=== PATIENT | male | born 2000 | race Caucasian/White ===

== ENCOUNTER 2021-08-04 16:15 | Inpatient (IN) | payer OTHER ==
[2021-08-04 17:40] VITALS: BMI 26.6
[2021-08-04] MEDS ORDERED: guaiFENesin 200 MG/10 ML 10 ML UNIT-DOSE CUPS PO PRN (21:39)
[2021-08-04] MEDS ORDERED: P-EPHED 60MG/TRIPROLIDI 2.5MG TABLET PO PRN (21:39)
[2021-08-04] MEDS ORDERED: DICYCLOMINE HCL 10 MG CAPSULE PO PRN (21:39)
[2021-08-04] MEDS ORDERED: LOPERAMIDE HCL 2 MG CAPSULE PO PRN (21:39)
[2021-08-04] MEDS ORDERED: chlordiazePOXIDE HCL 25 MG CAPSULE PO PRN (21:39)
[2021-08-04] MEDS ORDERED: MENTHOL/PHENOL 1 EACH UD MM PRN (21:39)
[2021-08-04] MEDS ORDERED: IBUPROFEN 400 MG TABLET (FP) PO PRN (21:39)
[2021-08-04] MEDS ORDERED: MAGNESIUM HYDROX 2400MG/30ML ORAL SUSPENSION 30 ML CUP PO PRN (21:39)
[2021-08-04] MEDS ORDERED: MAGNESIUM CITRATE 300 ML BOTTLE PO PRN (21:39)
[2021-08-04] MEDS ORDERED: ACETAMINOPHEN 325 MG TABLET (FP) PO PRN ×2 (21:39)
[2021-08-04] MEDS ORDERED: ONDANSETRON *ODT* 4 MG TABLET SL PRN (21:39)
[2021-08-04] MEDS ORDERED: METHOCARBAMOL 500 MG TABLET PO PRN (21:39)
[2021-08-04] MEDS ORDERED: BISMUTH SUBSALICYLATE 524 MG/30 ML PO PRN (21:39)
[2021-08-04] MEDS ORDERED: NICOTINE POLACRILEX 2 MG GUM BUC PRN (21:39)
[2021-08-04] MEDS ORDERED: MAG HYDROX/AL HYDROX/SIMETH 30 ML UNIT-DOSE CUP PO PRN (21:39)
[2021-08-04] MEDS: THIAMINE HCL 100 MG TABLET (FP) PO SCH (22:39)
[2021-08-04] MEDS: hydrOXYzine PAMOATE 25 MG CAPSULE (FP) PO PRN (22:39)
[2021-08-04] MEDS: MELATONIN 5 MG TABLETS PO SCH (22:39)
[2021-08-04] MEDS: chlordiazePOXIDE HCL 25 MG CAPSULE PO SCH (22:40)
[2021-08-05] MEDS: chlordiazePOXIDE HCL 25 MG CAPSULE PO SCH ×4 (06:13→23:01)
[2021-08-05] MEDS: PRENATAL VITAMINS W/ FOLIC ACID TABLET (FP) PO SCH (10:51)
[2021-08-05] MEDS: NICOTINE 14 MG/24 HOURS TOPICAL PATCH TD SCH (10:53)
[2021-08-05 14:12] LABS: HEMATOCRIT 40.7 % (35.4-49); HEMOGLOBIN 13.7 GM/dL (11.7-16.9); MCH 28.8 pg (25.7-33.7); MCHC 33.6 g/dl (32.0-35.9); MEAN CELL VOLUME 85.9 fl (80-96); MEAN PLT VOLUME 7.3 fl (7.5-11.1); PLATELET COUNT 310 10^3/uL (134-434); RBC 4.73 M/mm3 (4.00-5.60); RDW 13.4 % (11.9-15.9); WHITE BLOOD COUNT 5.8 K/mm3 (4.0-10.0)
[2021-08-05 14:15] LABS: CALCIUM 9.6 mg/dL (8.5-10.1)
[2021-08-05 14:16] LABS: ALBUMIN 3.6 g/dl (3.4-5.0); BLOOD UREA NITROGEN 12.6 mg/dL (7-18)
[2021-08-05 14:20] LABS: BILIRUBIN,TOTAL 0.2 mg/dL (0.2-1)
[2021-08-05 14:21] LABS: TOT PROT 6.4 g/dl (6.4-8.2)
[2021-08-05] MEDS: THIAMINE HCL 100 MG TABLET (FP) PO SCH (23:04)
[2021-08-05] MEDS: MELATONIN 5 MG TABLETS PO SCH (23:04)
[2021-08-06] MEDS: chlordiazePOXIDE HCL 25 MG CAPSULE PO SCH ×4 (06:08→23:08)
[2021-08-06] MEDS: PRENATAL VITAMINS W/ FOLIC ACID TABLET (FP) PO SCH (10:43)
[2021-08-06] MEDS: NICOTINE 14 MG/24 HOURS TOPICAL PATCH TD SCH (10:43)
[2021-08-06] MEDS: MELATONIN 5 MG TABLETS PO SCH (23:08)
[2021-08-06] MEDS: traZODone HCL 100 MG TABLET (FP) PO SCH (23:08)
[2021-08-06] MEDS: THIAMINE HCL 100 MG TABLET (FP) PO SCH (23:08)
[2021-08-07] MEDS ORDERED: chlordiazePOXIDE HCL 10 MG CAPSULE PO PRN
[2021-08-07] MEDS: chlordiazePOXIDE HCL 10 MG CAPSULE PO SCH ×4 (05:30→22:08)
[2021-08-07] MEDS: hydrOXYzine PAMOATE 25 MG CAPSULE (FP) PO PRN ×2 (05:31→22:09)
[2021-08-07] MEDS: NICOTINE 14 MG/24 HOURS TOPICAL PATCH TD SCH (10:09)
[2021-08-07] MEDS: PRENATAL VITAMINS W/ FOLIC ACID TABLET (FP) PO SCH (10:09)
[2021-08-07] MEDS: MELATONIN 5 MG TABLETS PO SCH (22:08)
[2021-08-07] MEDS: traZODone HCL 100 MG TABLET (FP) PO SCH (22:08)
[2021-08-07] MEDS: THIAMINE HCL 100 MG TABLET (FP) PO SCH (22:08)
[2021-08-08] MEDS: chlordiazePOXIDE HCL 10 MG CAPSULE PO SCH ×2 (06:14→18:10)
[2021-08-08] MEDS: NICOTINE 14 MG/24 HOURS TOPICAL PATCH TD SCH (10:32)
[2021-08-08] MEDS: PRENATAL VITAMINS W/ FOLIC ACID TABLET (FP) PO SCH (10:33)
[2021-08-08] MEDS: THIAMINE HCL 100 MG TABLET (FP) PO SCH (22:19)
[2021-08-08] MEDS: traZODone HCL 100 MG TABLET (FP) PO SCH (22:19)
[2021-08-08] MEDS: MELATONIN 5 MG TABLETS PO SCH (22:19)
[2021-08-09] MEDS ORDERED: chlordiazePOXIDE HCL 10 MG CAPSULE PO ONE (05:00)
[2021-08-09 09:04] VITALS: BP 134/75; PULSE 98; TEMP 97.9
== END 2021-08-09 09:26 | disposition home or self-care (01) | DRG 775 ==
LOC: YASAS 16:15 → Y3N 21:48
PROVIDERS: ADMIT Allergy & Immunology; ATTEND Allergy & Immunology
PROC: HZ2ZZZZ Detoxification Services for Substance Abuse Treatment (ICD-10-PCS; principal; 2021-08-04)
DX: F10.230 Alcohol dependence with withdrawal, uncomplicated (principal); F16.20 Hallucinogen dependence, uncomplicated; F12.20 Cannabis dependence, uncomplicated; F17.210 Nicotine dependence, cigarettes, uncomplicated; F19.24 Other psychoactive substance dependence with psychoactive substance-induced mood disorder; F42.4 Excoriation (skin-picking) disorder; F99 Mental disorder, not otherwise specified; G47.00 Insomnia, unspecified; R63.8 Other symptoms and signs concerning food and fluid intake; Z86.69 Personal history of other diseases of the nervous system and sense organs; Z59.00 Homelessness unspecified; Z56.0 Unemployment, unspecified
CPT/HCPCS: 36415; 80053; 85027; 86780; 87811; 93005; 93010; C9803; U0003; U0005

== ENCOUNTER 2021-08-10 13:14 | Inpatient (IN) | payer OTHER ==
[2021-08-10] MEDS ORDERED: guaiFENesin 200 MG/10 ML 10 ML UNIT-DOSE CUPS PO PRN (14:29)
[2021-08-10] MEDS ORDERED: ACETAMINOPHEN 325 MG TABLET (FP) PO PRN (14:29)
[2021-08-10] MEDS ORDERED: MAGNESIUM HYDROX 2400MG/30ML ORAL SUSPENSION 30 ML CUP PO PRN (14:29)
[2021-08-10] MEDS ORDERED: MAGNESIUM CITRATE 300 ML BOTTLE PO PRN (14:29)
[2021-08-10] MEDS ORDERED: LOPERAMIDE HCL 2 MG CAPSULE PO PRN (14:29)
[2021-08-10] MEDS ORDERED: P-EPHED 60MG/TRIPROLIDI 2.5MG TABLET PO PRN (14:29)
[2021-08-10] MEDS ORDERED: MAG HYDROX/AL HYDROX/SIMETH 30 ML UNIT-DOSE CUP PO PRN (14:29)
[2021-08-10] MEDS ORDERED: IBUPROFEN 400 MG TABLET (FP) PO PRN (14:29)
[2021-08-10 16:27] VITALS: BMI 24.3
[2021-08-10] MEDS: THIAMINE HCL 100 MG TABLET (FP) PO SCH (21:36)
[2021-08-10] MEDS: hydrOXYzine PAMOATE 25 MG CAPSULE (FP) PO SCH ×2 (21:37→22:06)
[2021-08-10] MEDS ORDERED: MELATONIN 5 MG TABLETS PO SCH (22:00)
[2021-08-10] MEDS: NICOTINE 7 MG/24 HOURS TOPICAL PATCH TD SCH (23:05)
[2021-08-11] MEDS: hydrOXYzine PAMOATE 25 MG CAPSULE (FP) PO SCH ×3 (08:42→13:33)
[2021-08-11] MEDS: NICOTINE 7 MG/24 HOURS TOPICAL PATCH TD SCH (09:45)
[2021-08-11] MEDS: PRENATAL VITAMINS W/ FOLIC ACID TABLET (FP) PO SCH (09:46)
[2021-08-11] MEDS ORDERED: FLU VACC QS2021-22(6MOS UP)/PF 60 MCG/0.5 ML SYRINGE IM ONE (13:00)
[2021-08-11 15:46] LABS: HIV INTERPRETATION NEGATIVE (NEGATIVE)
[2021-08-11 18:46] LABS: PH,URINE 5.5 (5.0-8.0); URINE APPEARANCE CLEAR; URINE BILIRUBIN NEGATIVE (NEGATIVE); URINE COLOR YELLOW; URINE GLUCOSE (UA) NEGATIVE (NEGATIVE); URINE KETONE NEGATIVE (NEGATIVE); URINE LEUK ESTERASE NEGATIVE (NEGATIVE); URINE NITRITE NEGATIVE (NEGATIVE); URINE PROTEIN NEGATIVE (NEGATIVE); URINE UROBILINOGEN 0.2 mg/dL (0.2-1.0)
[2021-08-11] MEDS: THIAMINE HCL 100 MG TABLET (FP) PO SCH (22:44)
[2021-08-11] MEDS: traZODone HCL 50 MG TABLET (FP) PO SCH (22:44)
[2021-08-12] MEDS: hydrOXYzine PAMOATE 25 MG CAPSULE (FP) PO PRN ×2 (06:31→21:17)
[2021-08-12] MEDS: NICOTINE 7 MG/24 HOURS TOPICAL PATCH TD SCH (09:58)
[2021-08-12] MEDS: PRENATAL VITAMINS W/ FOLIC ACID TABLET (FP) PO SCH (09:58)
[2021-08-12] MEDS: lamoTRIgine 25 MG TABLET PO SCH (09:58)
[2021-08-12 13:07] LABS: SARS-CoV-2 NAA Not Detected (Not Detected)
[2021-08-12] MEDS: traZODone HCL 50 MG TABLET (FP) PO SCH (21:16)
[2021-08-12] MEDS: THIAMINE HCL 100 MG TABLET (FP) PO SCH (21:18)
[2021-08-13] MEDS: NICOTINE 7 MG/24 HOURS TOPICAL PATCH TD SCH (10:20)
[2021-08-13] MEDS: PRENATAL VITAMINS W/ FOLIC ACID TABLET (FP) PO SCH (10:20)
[2021-08-13] MEDS: lamoTRIgine 25 MG TABLET PO SCH (10:20)
[2021-08-13] MEDS: THIAMINE HCL 100 MG TABLET (FP) PO SCH (21:48)
[2021-08-13] MEDS: traZODone HCL 50 MG TABLET (FP) PO SCH (21:48)
[2021-08-14] MEDS: lamoTRIgine 25 MG TABLET PO SCH (09:39)
[2021-08-14] MEDS: NICOTINE 7 MG/24 HOURS TOPICAL PATCH TD SCH (09:39)
[2021-08-14] MEDS: PRENATAL VITAMINS W/ FOLIC ACID TABLET (FP) PO SCH (09:39)
[2021-08-14] MEDS: NICOTINE 10 MG CARTRIDGE (INHALER) IH PRN (09:40)
[2021-08-14] MEDS: THIAMINE HCL 100 MG TABLET (FP) PO SCH (21:03)
[2021-08-14] MEDS: traZODone HCL 50 MG TABLET (FP) PO SCH (21:04)
[2021-08-15] MEDS: lamoTRIgine 25 MG TABLET PO SCH (09:56)
[2021-08-15] MEDS: PRENATAL VITAMINS W/ FOLIC ACID TABLET (FP) PO SCH (09:56)
[2021-08-15] MEDS: NICOTINE 7 MG/24 HOURS TOPICAL PATCH TD SCH (09:56)
[2021-08-15] MEDS: THIAMINE HCL 100 MG TABLET (FP) PO SCH (21:19)
[2021-08-15] MEDS: hydrOXYzine PAMOATE 25 MG CAPSULE (FP) PO PRN (21:19)
[2021-08-15] MEDS: traZODone HCL 50 MG TABLET (FP) PO SCH (21:19)
[2021-08-16] MEDS: lamoTRIgine 25 MG TABLET PO SCH (10:00)
[2021-08-16] MEDS: PRENATAL VITAMINS W/ FOLIC ACID TABLET (FP) PO SCH (10:03)
[2021-08-16] MEDS: NICOTINE 7 MG/24 HOURS TOPICAL PATCH TD SCH (10:03)
[2021-08-16] MEDS: traZODone HCL 50 MG TABLET (FP) PO SCH (21:37)
[2021-08-16] MEDS: THIAMINE HCL 100 MG TABLET (FP) PO SCH (21:37)
[2021-08-17] MEDS: lamoTRIgine 25 MG TABLET PO SCH (11:13)
[2021-08-17] MEDS: NICOTINE 7 MG/24 HOURS TOPICAL PATCH TD SCH (11:13)
[2021-08-17] MEDS: PRENATAL VITAMINS W/ FOLIC ACID TABLET (FP) PO SCH (11:13)
[2021-08-17] MEDS: traZODone HCL 50 MG TABLET (FP) PO SCH (21:49)
[2021-08-17] MEDS: THIAMINE HCL 100 MG TABLET (FP) PO SCH (21:50)
[2021-08-18] MEDS: lamoTRIgine 25 MG TABLET PO SCH (11:02)
[2021-08-18] MEDS: NICOTINE 7 MG/24 HOURS TOPICAL PATCH TD SCH (11:02)
[2021-08-18] MEDS: PRENATAL VITAMINS W/ FOLIC ACID TABLET (FP) PO SCH (11:02)
[2021-08-18] MEDS: NICOTINE 10 MG CARTRIDGE (INHALER) IH PRN (14:44)
[2021-08-18] MEDS: traZODone HCL 50 MG TABLET (FP) PO SCH (21:08)
[2021-08-18] MEDS: THIAMINE HCL 100 MG TABLET (FP) PO SCH (21:08)
[2021-08-19] MEDS: PRENATAL VITAMINS W/ FOLIC ACID TABLET (FP) PO SCH (09:48)
[2021-08-19] MEDS: NICOTINE 7 MG/24 HOURS TOPICAL PATCH TD SCH (09:48)
[2021-08-19] MEDS: lamoTRIgine 25 MG TABLET PO SCH (09:48)
[2021-08-19] MEDS: traZODone HCL 50 MG TABLET (FP) PO SCH (21:32)
[2021-08-19] MEDS: THIAMINE HCL 100 MG TABLET (FP) PO SCH (21:32)
[2021-08-19] MEDS: NICOTINE 10 MG CARTRIDGE (INHALER) IH PRN (22:11)
[2021-08-20] MEDS: PRENATAL VITAMINS W/ FOLIC ACID TABLET (FP) PO SCH (11:07)
[2021-08-20] MEDS: lamoTRIgine 25 MG TABLET PO SCH (11:07)
[2021-08-20] MEDS: NICOTINE 7 MG/24 HOURS TOPICAL PATCH TD SCH (11:07)
[2021-08-20] MEDS: traZODone HCL 50 MG TABLET (FP) PO SCH (21:11)
[2021-08-20] MEDS: THIAMINE HCL 100 MG TABLET (FP) PO SCH (21:11)
[2021-08-21] MEDS: PRENATAL VITAMINS W/ FOLIC ACID TABLET (FP) PO SCH (10:03)
[2021-08-21] MEDS: NICOTINE 7 MG/24 HOURS TOPICAL PATCH TD SCH (10:03)
[2021-08-21] MEDS: lamoTRIgine 25 MG TABLET PO SCH (10:03)
[2021-08-21 15:58] VITALS: BP 112/62; PULSE 73; TEMP 97.3
[2021-08-21] MEDS: THIAMINE HCL 100 MG TABLET (FP) PO SCH (21:10)
[2021-08-21] MEDS: traZODone HCL 50 MG TABLET (FP) PO SCH (21:10)
[2021-08-22] MEDS: NICOTINE 7 MG/24 HOURS TOPICAL PATCH TD SCH (10:20)
[2021-08-22] MEDS: PRENATAL VITAMINS W/ FOLIC ACID TABLET (FP) PO SCH (10:20)
[2021-08-22] MEDS: lamoTRIgine 25 MG TABLET PO SCH (10:20)
[2021-08-22] MEDS: THIAMINE HCL 100 MG TABLET (FP) PO SCH (21:47)
[2021-08-22] MEDS: traZODone HCL 50 MG TABLET (FP) PO SCH (21:47)
[2021-08-23] MEDS: NICOTINE 7 MG/24 HOURS TOPICAL PATCH TD SCH (09:55)
[2021-08-23] MEDS: lamoTRIgine 25 MG TABLET PO SCH (09:55)
[2021-08-23] MEDS: PRENATAL VITAMINS W/ FOLIC ACID TABLET (FP) PO SCH (09:55)
== END 2021-08-23 13:02 | disposition home or self-care (01) | DRG 772 ==
LOC: YASAS 13:14 → Y3E 16:49
PROVIDERS: ADMIT Allergy & Immunology; ATTEND Allergy & Immunology
PROC: HZ42ZZZ Group Counseling for Substance Abuse Treatment, Cognitive-Behavioral (ICD-10-PCS; principal; 2021-08-10)
DX: F10.20 Alcohol dependence, uncomplicated (principal); F12.20 Cannabis dependence, uncomplicated; F16.10 Hallucinogen abuse, uncomplicated; F17.210 Nicotine dependence, cigarettes, uncomplicated; F33.9 Major depressive disorder, recurrent, unspecified; F41.9 Anxiety disorder, unspecified; F19.24 Other psychoactive substance dependence with psychoactive substance-induced mood disorder; F43.10 Post-traumatic stress disorder, unspecified; Z91.51 Personal history of suicidal behavior; Z86.69 Personal history of other diseases of the nervous system and sense organs; Z56.0 Unemployment, unspecified; Z59.00 Homelessness unspecified
CPT/HCPCS: 36415; 81003; 86803; 87389; 90686; C9803-CS; G0008; U0003; U0005

== ENCOUNTER 2022-07-04 16:51 | Inpatient (IN) | payer OTHER ==
[2022-07-04 17:27] VITALS: BMI 21.1
[2022-07-04] MEDS ORDERED: BISMUTH SUBSALICYLATE 524 MG/30 ML PO PRN (18:25)
[2022-07-04] MEDS ORDERED: DICYCLOMINE HCL 10 MG CAPSULE PO PRN (18:25)
[2022-07-04] MEDS ORDERED: BENZOCAINE/MENTHOL (CHLORASEPTIC ) LOZENGE MM PRN (18:25)
[2022-07-04] MEDS ORDERED: IBUPROFEN 400 MG TABLET (FP) PO PRN (18:25)
[2022-07-04] MEDS ORDERED: POLYETHYLENE GLYCOL (HEALTHYLAX) 3350 17 GM PACKET PO PRN (18:25)
[2022-07-04] MEDS ORDERED: NALOXONE HCL (KLOXXADO) 8 MG SPRAY NS PRN (18:25)
[2022-07-04] MEDS ORDERED: NICOTINE 10 MG CARTRIDGE (INHALER) IH PRN (18:25)
[2022-07-04] MEDS ORDERED: MAG HYDROX/AL HYDROX/SIMETH 30 ML UNIT-DOSE CUP PO PRN (18:25)
[2022-07-04] MEDS ORDERED: MAGNESIUM HYDROX 2400MG/30ML ORAL SUSPENSION 30 ML CUP PO PRN (18:25)
[2022-07-04] MEDS ORDERED: LOPERAMIDE HCL 2 MG CAPSULE PO PRN (18:25)
[2022-07-04] MEDS ORDERED: ACETAMINOPHEN 325 MG TABLET (FP) PO PRN ×2 (18:25)
[2022-07-04] MEDS ORDERED: IBUPROFEN 600 MG TABLET (FP) PO PRN (18:25)
[2022-07-04] MEDS ORDERED: methaDONE HCL 10 MG TABLET (FOR DETOX USE ONLY) PO ONE (20:30)
[2022-07-04] MEDS ORDERED: methaDONE HCL 10 MG TABLET (FOR DETOX USE ONLY) ONE (21:02)
[2022-07-04] MEDS: THIAMINE HCL 100 MG TABLET (FP) PO SCH (21:52)
[2022-07-04] MEDS: cloNIDine HCL 0.1 MG TABLET PO PRN (21:52)
[2022-07-04] MEDS ORDERED: MELATONIN 5 MG TABLETS PO SCH (22:00)
[2022-07-05] MEDS: METHOCARBAMOL 500 MG TABLET PO PRN ×2 (05:45→18:25)
[2022-07-05] MEDS: PRENATAL VITAMINS W/ FOLIC ACID TABLET (FP) PO SCH (10:41)
[2022-07-05 12:20] LABS: HEMATOCRIT 39.9 % (35.4-49); HEMOGLOBIN 12.9 GM/dL (11.7-16.9); MCHC 32.4 g/dl (32.0-35.9); MEAN CELL VOLUME 83.4 fl (80-96); MEAN PLT VOLUME 8.1 fl (7.5-11.1); PLATELET COUNT 349 10^3/uL (134-434); RBC 4.79 M/mm3 (4.00-5.60); RDW 13.8 % (11.9-15.9); WHITE BLOOD COUNT 5.9 K/mm3 (4.0-10.0)
[2022-07-05 12:53] LABS: ALBUMIN 3.2 g/dl (3.4-5.0); BLOOD UREA NITROGEN 8.9 mg/dL (7-18); CALCIUM 9.3 mg/dL (8.5-10.1)
[2022-07-05 12:57] LABS: TOT PROT 6.2 g/dl (6.4-8.2)
[2022-07-05 12:58] LABS: CREATININE 0.8 mg/dL (0.55-1.3)
[2022-07-05 13:00] LABS: BILIRUBIN,TOTAL 0.3 mg/dL (0.2-1)
[2022-07-05] MEDS: cloNIDine HCL 0.1 MG TABLET PO PRN (18:52)
[2022-07-05] MEDS: THIAMINE HCL 100 MG TABLET (FP) PO SCH (22:35)
[2022-07-05] MEDS: traZODone HCL 50 MG TABLET (FP) PO SCH (22:35)
[2022-07-06] MEDS: PRENATAL VITAMINS W/ FOLIC ACID TABLET (FP) PO SCH (09:32)
[2022-07-06] MEDS ORDERED: methaDONE HCL 10 MG TABLET (FOR DETOX USE ONLY) PO ONE (10:00)
[2022-07-06] MEDS: ONDANSETRON *ODT* 4 MG TABLET SL PRN (12:51)
[2022-07-06] MEDS: cloNIDine HCL 0.1 MG TABLET PO PRN (16:49)
[2022-07-06] MEDS: METHOCARBAMOL 500 MG TABLET PO PRN (16:51)
[2022-07-06 20:52] VITALS: RESP 18; TEMP 97.8
[2022-07-06] MEDS: THIAMINE HCL 100 MG TABLET (FP) PO SCH (22:18)
[2022-07-06] MEDS: traZODone HCL 50 MG TABLET (FP) PO SCH (22:18)
[2022-07-07] MEDS: METHOCARBAMOL 500 MG TABLET PO PRN (05:05)
[2022-07-07] MEDS: ONDANSETRON *ODT* 4 MG TABLET SL PRN (06:12)
[2022-07-07 06:33] VITALS: BP 115/50; PULSE 60
[2022-07-07] MEDS: PRENATAL VITAMINS W/ FOLIC ACID TABLET (FP) PO SCH (09:29)
== END 2022-07-07 09:38 | disposition home or self-care (01) | DRG 773 ==
LOC: YASAS 16:51 → Y6N 19:29
PROVIDERS: ADMIT Allergy & Immunology; ATTEND Surgery
PROC: HZ2ZZZZ Detoxification Services for Substance Abuse Treatment (ICD-10-PCS; principal; 2022-07-04)
DX: F11.23 Opioid dependence with withdrawal (principal); F10.230 Alcohol dependence with withdrawal, uncomplicated; F14.20 Cocaine dependence, uncomplicated; F16.20 Hallucinogen dependence, uncomplicated; F17.210 Nicotine dependence, cigarettes, uncomplicated; F19.282 Other psychoactive substance dependence with psychoactive substance-induced sleep disorder; F31.9 Bipolar disorder, unspecified; F39 Unspecified mood [affective] disorder; F43.10 Post-traumatic stress disorder, unspecified; Z28.310 Unvaccinated for COVID-19; Z28.9 Immunization not carried out for unspecified reason
CPT/HCPCS: 36415; 80053; 85027; 86780; C9803-CS; Q0162; U0003; U0005

== ENCOUNTER 2022-08-30 16:35 | Inpatient (IN) | payer OTHER ==
[2022-08-30 18:39] VITALS: BMI 25.1
[2022-08-30] MEDS ORDERED: BENZONATATE 200 MG CAPSULE PO PRN (20:05)
[2022-08-30] MEDS ORDERED: ACETAMINOPHEN 325 MG TABLET (FP) PO PRN (20:05)
[2022-08-30] MEDS ORDERED: guaiFENesin 600 MG TABLET.ER (FP) PO PRN (20:05)
[2022-08-30] MEDS ORDERED: POLYETHYLENE GLYCOL (HEALTHYLAX) 3350 17 GM PACKET PO PRN (20:05)
[2022-08-30] MEDS ORDERED: IBUPROFEN 600 MG TABLET (FP) PO PRN (20:05)
[2022-08-30] MEDS ORDERED: IBUPROFEN 400 MG TABLET (FP) PO PRN (20:05)
[2022-08-30] MEDS ORDERED: NALOXONE HCL 0.4 MG/ML VIAL IM PRN (20:05)
[2022-08-30] MEDS ORDERED: MAGNESIUM HYDROX 2400MG/30ML ORAL SUSPENSION 30 ML CUP PO PRN (20:05)
[2022-08-30] MEDS ORDERED: BISMUTH SUBSALICYLATE 524 MG/30 ML PO PRN (20:05)
[2022-08-30] MEDS ORDERED: DICYCLOMINE HCL 10 MG CAPSULE PO PRN (20:05)
[2022-08-30] MEDS ORDERED: cloNIDine HCL 0.1 MG TABLET PO PRN (20:05)
[2022-08-30] MEDS ORDERED: methaDONE HCL 10 MG TABLET (FOR DETOX USE ONLY) PO ONE (20:05)
[2022-08-30] MEDS ORDERED: NALOXONE HCL (KLOXXADO) 8 MG SPRAY NS PRN (20:05)
[2022-08-30] MEDS ORDERED: LOPERAMIDE HCL 2 MG CAPSULE PO PRN (20:05)
[2022-08-30] MEDS ORDERED: NICOTINE 10 MG CARTRIDGE (INHALER) IH PRN (20:05)
[2022-08-30] MEDS ORDERED: MAG HYDROX/AL HYDROX/SIMETH 30 ML UNIT-DOSE CUP PO PRN (20:05)
[2022-08-30] MEDS ORDERED: BENZOCAINE/MENTHOL (CHLORASEPTIC ) LOZENGE MM PRN (20:05)
[2022-08-30] MEDS ORDERED: ALBUTEROL SO4 HFA INHALER IH PRN (20:14)
[2022-08-30] MEDS ORDERED: methaDONE HCL 10 MG TABLET (FOR DETOX USE ONLY) ONE (21:01)
[2022-08-30] MEDS: MELATONIN 5 MG TABLETS PO SCH (22:51)
[2022-08-30] MEDS: THIAMINE HCL 100 MG TABLET (FP) PO SCH (22:51)
[2022-08-31] MEDS: ONDANSETRON *ODT* 4 MG TABLET SL PRN (08:35)
[2022-08-31] MEDS: PRENATAL VITAMINS W/ FOLIC ACID TABLET (FP) PO SCH (10:12)
[2022-08-31] MEDS: METHOCARBAMOL 500 MG TABLET PO PRN ×2 (10:12→19:31)
[2022-08-31] MEDS: NICOTINE 21 MG/24 HOURS TOPICAL PATCH TD SCH (10:13)
[2022-08-31 10:49] LABS: HEMATOCRIT 38.6 % (35.4-49); HEMOGLOBIN 12.7 GM/dL (11.7-16.9); MCH 26.9 pg (25.7-33.7); MCHC 32.9 g/dl (32.0-35.9); MEAN CELL VOLUME 81.7 fl (80-96); MEAN PLT VOLUME 7.6 fl (7.5-11.1); PLATELET COUNT 391 10^3/uL (134-434); RBC 4.72 M/mm3 (4.00-5.60); RDW 14.1 % (11.9-15.9); WHITE BLOOD COUNT 6.6 K/mm3 (4.0-10.0)
[2022-08-31 11:00] LABS: ALBUMIN 3.2 g/dl (3.4-5.0); BLOOD UREA NITROGEN 12.2 mg/dL (7-18); CALCIUM 8.7 mg/dL (8.5-10.1)
[2022-08-31 11:03] LABS: CREATININE 0.7 mg/dL (0.55-1.3)
[2022-08-31 11:04] LABS: BILIRUBIN,TOTAL 0.6 mg/dL (0.2-1)
[2022-08-31 11:05] LABS: TOT PROT 6.2 g/dl (6.4-8.2)
[2022-08-31] MEDS ORDERED: hydrOXYzine PAMOATE 25 MG CAPSULE (FP) PO PRN (11:53)
[2022-08-31] MEDS ORDERED: traZODone HCL 100 MG TABLET (FP) PO SCH (22:00)
[2022-08-31] MEDS: THIAMINE HCL 100 MG TABLET (FP) PO SCH (22:11)
[2022-08-31] MEDS: MELATONIN 5 MG TABLETS PO SCH (22:11)
[2022-09-01 08:49] VITALS: BP 147/72; PULSE 69; RESP 18; TEMP 97.8
[2022-09-01] MEDS: ONDANSETRON *ODT* 4 MG TABLET SL PRN (09:08)
[2022-09-01] MEDS: PRENATAL VITAMINS W/ FOLIC ACID TABLET (FP) PO SCH (09:59)
[2022-09-01] MEDS: METHOCARBAMOL 500 MG TABLET PO PRN (10:00)
[2022-09-01] MEDS ORDERED: methaDONE HCL 10 MG TABLET (FOR DETOX USE ONLY) PO ONE (10:00)
[2022-09-01] MEDS: NICOTINE 21 MG/24 HOURS TOPICAL PATCH TD SCH (10:02)
[2022-09-03] MEDS ORDERED: methaDONE HCL 10 MG TABLET (FOR DETOX USE ONLY) PO ONE (10:00)
== END 2022-09-01 11:35 | disposition left against medical advice (07) | DRG 770 ==
LOC: YASAS 16:35 → Y3N 22:03
PROVIDERS: ADMIT Allergy & Immunology; ATTEND Surgery
PROC: HZ2ZZZZ Detoxification Services for Substance Abuse Treatment (ICD-10-PCS; principal; 2022-08-30)
DX: F11.23 Opioid dependence with withdrawal (principal); F10.230 Alcohol dependence with withdrawal, uncomplicated; F14.20 Cocaine dependence, uncomplicated; F17.210 Nicotine dependence, cigarettes, uncomplicated; F31.9 Bipolar disorder, unspecified; F19.24 Other psychoactive substance dependence with psychoactive substance-induced mood disorder; F43.10 Post-traumatic stress disorder, unspecified; F41.9 Anxiety disorder, unspecified; G47.00 Insomnia, unspecified; Z28.310 Unvaccinated for COVID-19; Z28.9 Immunization not carried out for unspecified reason
CPT/HCPCS: 36415; 80053; 85027; 86780; C9803-CS; Q0162; U0003; U0005

== ENCOUNTER 2022-10-20 12:13 | Inpatient (IN) | payer OTHER ==
[2022-10-20 13:33] VITALS: BMI 24.3
[2022-10-20] MEDS ORDERED: guaiFENesin 600 MG TABLET.ER (FP) PO PRN (16:56)
[2022-10-20] MEDS ORDERED: NICOTINE 10 MG CARTRIDGE (INHALER) IH PRN (16:56)
[2022-10-20] MEDS ORDERED: BISMUTH SUBSALICYLATE 524 MG/30 ML PO PRN (16:56)
[2022-10-20] MEDS ORDERED: MAGNESIUM HYDROX 2400MG/30ML ORAL SUSPENSION 30 ML CUP PO PRN (16:56)
[2022-10-20] MEDS ORDERED: ACETAMINOPHEN 325 MG TABLET (FP) PO PRN (16:56)
[2022-10-20] MEDS ORDERED: MAG HYDROX/AL HYDROX/SIMETH 30 ML UNIT-DOSE CUP PO PRN (16:56)
[2022-10-20] MEDS ORDERED: IBUPROFEN 400 MG TABLET (FP) PO PRN (16:56)
[2022-10-20] MEDS ORDERED: ONDANSETRON *ODT* 4 MG TABLET SL PRN (16:56)
[2022-10-20] MEDS ORDERED: POLYETHYLENE GLYCOL (HEALTHYLAX) 3350 17 GM PACKET PO PRN (16:56)
[2022-10-20] MEDS ORDERED: LOPERAMIDE HCL 2 MG CAPSULE PO PRN (16:56)
[2022-10-20] MEDS ORDERED: BENZOCAINE/MENTHOL (CHLORASEPTIC ) LOZENGE MM PRN (16:56)
[2022-10-20] MEDS ORDERED: NALOXONE HCL 0.4 MG/ML VIAL IM PRN (16:56)
[2022-10-20] MEDS ORDERED: BENZONATATE 200 MG CAPSULE PO PRN (16:56)
[2022-10-20] MEDS ORDERED: DICYCLOMINE HCL 10 MG CAPSULE PO PRN (16:56)
[2022-10-20] MEDS ORDERED: NALOXONE HCL (KLOXXADO) 8 MG SPRAY NS PRN (16:56)
[2022-10-20] MEDS ORDERED: methaDONE HCL 10 MG TABLET (FOR DETOX USE ONLY) PO ONE (16:56)
[2022-10-20] MEDS ORDERED: methaDONE HCL 10 MG TABLET (FOR DETOX USE ONLY) ONE (17:33)
[2022-10-20] MEDS: METHOCARBAMOL 500 MG TABLET PO PRN (18:28)
[2022-10-20] MEDS: hydrOXYzine PAMOATE 25 MG CAPSULE (FP) PO PRN (18:28)
[2022-10-20] MEDS: diazePAM 5 MG TABLET PO PRN (22:52)
[2022-10-20] MEDS: MELATONIN 5 MG TABLETS PO SCH (22:52)
[2022-10-20] MEDS: THIAMINE HCL 100 MG TABLET (FP) PO SCH (22:52)
[2022-10-21] MEDS: METHOCARBAMOL 500 MG TABLET PO PRN ×2 (10:28→22:43)
[2022-10-21] MEDS: diazePAM 5 MG TABLET PO PRN ×2 (10:29→22:42)
[2022-10-21] MEDS: PRENATAL VITAMINS W/ FOLIC ACID TABLET (FP) PO SCH (10:29)
[2022-10-21] MEDS: cloNIDine HCL 0.1 MG TABLET PO PRN (17:53)
[2022-10-21] MEDS: hydrOXYzine PAMOATE 25 MG CAPSULE (FP) PO PRN (17:53)
[2022-10-21] MEDS: THIAMINE HCL 100 MG TABLET (FP) PO SCH (22:41)
[2022-10-21] MEDS: MELATONIN 5 MG TABLETS PO SCH (22:41)
[2022-10-22] MEDS: METHOCARBAMOL 500 MG TABLET PO PRN ×2 (09:40→22:07)
[2022-10-22] MEDS: diazePAM 5 MG TABLET PO PRN ×2 (09:40→17:50)
[2022-10-22] MEDS: PRENATAL VITAMINS W/ FOLIC ACID TABLET (FP) PO SCH (09:41)
[2022-10-22] MEDS ORDERED: methaDONE HCL 10 MG TABLET (FOR DETOX USE ONLY) PO ONE (10:00)
[2022-10-22 11:56] LABS: POTASSIUM 4.5 mmol/L (3.5-5.1)
[2022-10-22 12:07] LABS: HEMATOCRIT 38.5 % (35.4-49); HEMOGLOBIN 12.9 GM/dL (11.7-16.9); MCH 27.1 pg (25.7-33.7); MCHC 33.4 g/dl (32.0-35.9); MEAN PLT VOLUME 7.9 fl (7.5-11.1); PLATELET COUNT 359 10^3/uL (134-434); RBC 4.75 M/mm3 (4.00-5.60); RDW 14.4 % (11.9-15.9); WHITE BLOOD COUNT 7.6 K/mm3 (4.0-10.0)
[2022-10-22 12:09] LABS: ALBUMIN 3.5 g/dl (3.4-5.0); BLOOD UREA NITROGEN 17.6 mg/dL (7-18)
[2022-10-22 12:12] LABS: CREATININE 0.9 mg/dL (0.55-1.3)
[2022-10-22 12:13] LABS: BILIRUBIN,TOTAL 0.6 mg/dL (0.2-1); CALCIUM 9.5 mg/dL (8.5-10.1); TOT PROT 7.1 g/dl (6.4-8.2)
[2022-10-22] MEDS: hydrOXYzine PAMOATE 25 MG CAPSULE (FP) PO PRN (17:50)
[2022-10-22] MEDS: cloNIDine HCL 0.1 MG TABLET PO PRN (17:50)
[2022-10-22] MEDS ORDERED: PATIENT'S OWN MEDICATION (NON-FORMULARY) (Trazodone Hcl [Trazodone Hcl] 150 MG Tablet) PO SCH (22:00)
[2022-10-22] MEDS: traZODone HCL 100 MG TABLET (FP) PO SCH (22:07)
[2022-10-22] MEDS: MELATONIN 5 MG TABLETS PO SCH (22:07)
[2022-10-22] MEDS: THIAMINE HCL 100 MG TABLET (FP) PO SCH (22:07)
[2022-10-23] MEDS: PRENATAL VITAMINS W/ FOLIC ACID TABLET (FP) PO SCH (10:02)
[2022-10-23] MEDS: hydrOXYzine PAMOATE 25 MG CAPSULE (FP) PO PRN (10:05)
[2022-10-23] MEDS: THIAMINE HCL 100 MG TABLET (FP) PO SCH (21:35)
[2022-10-23] MEDS: METHOCARBAMOL 500 MG TABLET PO PRN (21:35)
[2022-10-23] MEDS: traZODone HCL 100 MG TABLET (FP) PO SCH (21:35)
[2022-10-23] MEDS: MELATONIN 5 MG TABLETS PO SCH (21:36)
[2022-10-23] MEDS: IBUPROFEN 600 MG TABLET (FP) PO PRN (21:50)
[2022-10-24] MEDS ORDERED: methaDONE HCL 10 MG TABLET (FOR DETOX USE ONLY) PO ONE (10:00)
[2022-10-24] MEDS: PRENATAL VITAMINS W/ FOLIC ACID TABLET (FP) PO SCH (10:06)
[2022-10-24] MEDS: METHOCARBAMOL 500 MG TABLET PO PRN ×2 (10:08→21:47)
[2022-10-24] MEDS ORDERED: NICOTINE 21 MG/24 HOURS TOPICAL PATCH TD SCH (13:45)
[2022-10-24] MEDS: hydrOXYzine PAMOATE 25 MG CAPSULE (FP) PO PRN (17:24)
[2022-10-24] MEDS: IBUPROFEN 600 MG TABLET (FP) PO PRN (20:43)
[2022-10-24] MEDS: traZODone HCL 100 MG TABLET (FP) PO SCH (21:47)
[2022-10-24] MEDS: THIAMINE HCL 100 MG TABLET (FP) PO SCH (21:47)
[2022-10-24] MEDS: MELATONIN 5 MG TABLETS PO SCH (21:47)
[2022-10-25] MEDS: METHOCARBAMOL 500 MG TABLET PO PRN (05:23)
[2022-10-25] MEDS: IBUPROFEN 600 MG TABLET (FP) PO PRN (05:23)
[2022-10-25 06:16] VITALS: BP 133/80; PULSE 70; RESP 16; TEMP 98.4
== END 2022-10-25 09:04 | disposition home or self-care (01) | DRG 773 ==
LOC: YASAS 12:13 → Y3N 16:47
PROVIDERS: ADMIT Allergy & Immunology; ATTEND Allergy & Immunology
PROC: HZ2ZZZZ Detoxification Services for Substance Abuse Treatment (ICD-10-PCS; principal; 2022-10-20)
DX: F11.23 Opioid dependence with withdrawal (principal); F14.20 Cocaine dependence, uncomplicated; F12.20 Cannabis dependence, uncomplicated; F17.210 Nicotine dependence, cigarettes, uncomplicated; F19.24 Other psychoactive substance dependence with psychoactive substance-induced mood disorder; F31.9 Bipolar disorder, unspecified; G47.00 Insomnia, unspecified; J45.909 Unspecified asthma, uncomplicated; Z91.410 Personal history of adult physical and sexual abuse
CPT/HCPCS: 36415; 80053; 83036; 85027; 86780; C9803-CS; U0003; U0005

== ENCOUNTER 2024-01-30 14:06 | Inpatient (IN) | payer OTHER ==
[2024-01-30 15:10] VITALS: BMI 28.7
[2024-01-30] MEDS ORDERED: BENZONATATE 200 MG CAPSULE PO PRN (17:09)
[2024-01-30] MEDS ORDERED: NALOXONE HCL 0.4 MG/ML VIAL IM PRN (17:09)
[2024-01-30] MEDS ORDERED: BENZOCAINE/MENTHOL (CHLORASEPTIC ) LOZENGE MM PRN (17:09)
[2024-01-30] MEDS ORDERED: guaiFENesin 600 MG TABLET.ER (FP) PO PRN (17:09)
[2024-01-30] MEDS ORDERED: IBUPROFEN 400 MG TABLET (FP) PO PRN (17:09)
[2024-01-30] MEDS ORDERED: ONDANSETRON *ODT* 4 MG TABLET SL PRN (17:09)
[2024-01-30] MEDS ORDERED: LOPERAMIDE HCL 2 MG CAPSULE PO PRN (17:09)
[2024-01-30] MEDS ORDERED: POLYETHYLENE GLYCOL (HEALTHYLAX) 3350 17 GM PACKET PO PRN (17:09)
[2024-01-30] MEDS ORDERED: NALOXONE (NARCAN) HCL 4 MG/0.1 ML SPRAY NS PRN (17:09)
[2024-01-30] MEDS ORDERED: DICYCLOMINE HCL 10 MG CAPSULE PO PRN (17:09)
[2024-01-30] MEDS ORDERED: ACETAMINOPHEN 325 MG TABLET (FP) PO PRN (17:09)
[2024-01-30] MEDS ORDERED: P-EPHED 60MG/TRIPROLIDI 2.5MG TABLET PO PRN (17:09)
[2024-01-30] MEDS ORDERED: MAGNESIUM HYDROX 2400MG/30ML ORAL SUSPENSION 30 ML CUP PO PRN (17:09)
[2024-01-30] MEDS ORDERED: BISMUTH SUBSALICYLATE 524 MG/30 ML PO PRN (17:09)
[2024-01-30] MEDS ORDERED: MAG HYDROX/AL HYDROX/SIMETH 30 ML UNIT-DOSE CUP PO PRN (17:09)
[2024-01-30] MEDS ORDERED: NICOTINE POLACRILEX 2 MG LOZENGE BC PRN (17:09)
[2024-01-30] MEDS ORDERED: methaDONE HCL 10 MG TABLET (FOR DETOX USE ONLY) ONE (17:40)
[2024-01-30] MEDS ORDERED: methaDONE HCL 10 MG TABLET (FOR DETOX USE ONLY) PO ONE (20:00)
[2024-01-30] MEDS: MELATONIN 5 MG TABLETS PO SCH (21:36)
[2024-01-30] MEDS: THIAMINE 100 MG TABLET PO SCH (21:37)
[2024-01-30] MEDS: cloNIDine HCL 0.1 MG TABLET PO PRN (21:37)
[2024-01-30] MEDS: METHOCARBAMOL 500 MG TABLET PO PRN (21:37)
[2024-01-30] MEDS: methaDONE HCL 10 MG TABLET (FOR DETOX USE ONLY) PO ONE (21:38)
[2024-01-31 10:30] LABS: HEMATOCRIT 37.2 % (35.4-49); HEMOGLOBIN 12.5 GM/dL (11.7-16.9); MCH 27.5 pg (25.7-33.7); MCHC 33.6 g/dl (32.0-35.9); MEAN CELL VOLUME 81.9 fl (80-96); MEAN PLT VOLUME 7.7 fl (7.5-11.1); PLATELET COUNT 363 10^3/uL (134-434); RBC 4.54 M/mm3 (4.00-5.60); RDW 13.4 % (11.9-15.9); WHITE BLOOD COUNT 7.3 K/mm3 (4.0-10.0)
[2024-01-31 10:44] LABS: CHLORIDE 102 mmol/L (98-107); POTASSIUM 4.3 mmol/L (3.5-5.1); SODIUM 138 mmol/L (136-145)
[2024-01-31] MEDS: methaDONE HCL 10 MG TABLET (FOR DETOX USE ONLY) PO ONE ×2 (10:55→11:52)
[2024-01-31 10:58] LABS: CALCIUM 9.3 mg/dL (8.5-10.1)
[2024-01-31 10:59] LABS: ALBUMIN 3.6 g/dl (3.4-5.0); ANION GAP 8 mmol/L (4-13); BLOOD UREA NITROGEN 10.6 mg/dL (7-18); CO2 28 mmol/L (21-32); GLUCOSE,RANDOM 114 mg/dL (74-106)
[2024-01-31 11:00] LABS: SGPT/ALT 34 U/L (13-61)
[2024-01-31 11:02] LABS: BILIRUBIN,TOTAL 0.3 mg/dL (0.2-1); SGOT/AST 46 U/L (15-37); TOT PROT 6.8 g/dl (6.4-8.2)
[2024-01-31 11:03] LABS: ALK PHOS 101 U/L (45-117)
[2024-01-31] MEDS: PRENATAL VITAMINS W/ FOLIC ACID TABLET (FP) PO SCH (11:17)
[2024-01-31] MEDS: traZODone HCL 100 MG TABLET (FP) PO SCH (21:15)
[2024-02-01] MEDS: IBUPROFEN 600 MG TABLET (FP) PO PRN (12:42)
[2024-02-01] MEDS: hydrOXYzine PAMOATE 25 MG CAPSULE (FP) PO PRN (18:52)
[2024-02-02] MEDS: methaDONE HCL 10 MG TABLET (FOR DETOX USE ONLY) PO ONE (09:56)
[2024-02-02] MEDS: NICOTINE POLACRILEX 2 MG GUM BUC PRN (19:25)
[2024-02-03 09:21] VITALS: BP 120/65; PULSE 90; RESP 17; TEMP 97.3
== END 2024-02-03 14:41 | disposition other institution (70) | DRG 773 ==
LOC: YASAS 14:06 → Y3N 17:37
PROVIDERS: ADMIT Allergy & Immunology; ATTEND Psychiatry & Neurology Pain Medicine
PROC: HZ2ZZZZ Detoxification Services for Substance Abuse Treatment (ICD-10-PCS; principal; 2024-01-30)
DX: F11.23 Opioid dependence with withdrawal (principal); F10.230 Alcohol dependence with withdrawal, uncomplicated; F16.20 Hallucinogen dependence, uncomplicated; F12.20 Cannabis dependence, uncomplicated; F17.210 Nicotine dependence, cigarettes, uncomplicated; F19.94 Other psychoactive substance use, unspecified with psychoactive substance-induced mood disorder; F43.10 Post-traumatic stress disorder, unspecified; J45.909 Unspecified asthma, uncomplicated; G47.00 Insomnia, unspecified; Z86.69 Personal history of other diseases of the nervous system and sense organs; Z56.0 Unemployment, unspecified; Z59.00 Homelessness unspecified
CPT/HCPCS: 36415; 80053; 80305; 80307; 85027; 86780; 87811; 93005; 93010

== ENCOUNTER 2024-02-03 15:02 | Inpatient (IN) | payer OTHER ==
[2024-02-03] MEDS ORDERED: IBUPROFEN 400 MG TABLET (FP) PO PRN (15:54)
[2024-02-03] MEDS ORDERED: ACETAMINOPHEN 325 MG TABLET (FP) PO PRN (15:54)
[2024-02-03] MEDS ORDERED: MAG HYDROX/AL HYDROX/SIMETH 30 ML UNIT-DOSE CUP PO PRN (15:54)
[2024-02-03] MEDS ORDERED: BENZOCAINE/MENTHOL (CHLORASEPTIC ) LOZENGE MM PRN (15:54)
[2024-02-03] MEDS ORDERED: POLYETHYLENE GLYCOL (HEALTHYLAX) 3350 17 GM PACKET PO PRN (15:54)
[2024-02-03] MEDS ORDERED: NALOXONE (NARCAN) HCL 4 MG/0.1 ML SPRAY NS PRN (15:54)
[2024-02-03] MEDS ORDERED: NALOXONE HCL 0.4 MG/ML VIAL IVPUSH PRN (15:54)
[2024-02-03] MEDS ORDERED: guaiFENesin 600 MG TABLET.ER (FP) PO PRN (15:54)
[2024-02-03] MEDS ORDERED: BENZONATATE 200 MG CAPSULE PO PRN (15:54)
[2024-02-03] MEDS ORDERED: hydrOXYzine PAMOATE 25 MG CAPSULE (FP) PO PRN (15:54)
[2024-02-03] MEDS ORDERED: IBUPROFEN 600 MG TABLET (FP) PO PRN (15:54)
[2024-02-03] MEDS ORDERED: LOPERAMIDE HCL 2 MG CAPSULE PO PRN (15:54)
[2024-02-03] MEDS: NICOTINE 7 MG/24 HOURS TOPICAL PATCH TD SCH (16:57)
[2024-02-03] MEDS: MELATONIN 5 MG TABLETS PO SCH (22:04)
[2024-02-03] MEDS: THIAMINE 100 MG TABLET PO SCH (22:04)
[2024-02-03] MEDS: traZODone HCL 100 MG TABLET (FP) PO SCH (22:39)
[2024-02-04] MEDS: PRENATAL VITAMINS W/ FOLIC ACID TABLET (FP) PO SCH (09:21)
[2024-02-04] MEDS: NICOTINE POLACRILEX 4 MG GUM BUC PRN (10:09)
[2024-02-04 13:40] LABS: INR 0.97 (0.83-1.09)
[2024-02-04] MEDS ORDERED: TUBERCULIN PPD 5 TU/0.1ML VIAL ID ONE (17:04)
[2024-02-04] MEDS: METHOCARBAMOL 500 MG TABLET PO PRN (17:26)
[2024-02-06] MEDS: NICOTINE POLACRILEX 4 MG LOZENGE BC PRN (10:00)
[2024-02-06] MEDS ORDERED: BUPRENORPHINE HCL 150 MCG, BUPRENORPHINE HCL 75 MCG BC PRN (12:12)
[2024-02-06] MEDS ORDERED: AMMONIUM LACTATE 12% LOTION 225 GM BOTTLE TP PRN (12:45)
[2024-02-06] MEDS: GABAPENTIN 100 MG CAPSULE PO SCH (13:42)
[2024-02-06] MEDS: LACTULOSE 20 GM/30 ML UDC (FOR ORAL USE ONLY) PO SCH (13:42)
[2024-02-06] MEDS: BUPRENORPHINE HCL 150 MCG, BUPRENORPHINE HCL 75 MCG BC ONE (13:42)
[2024-02-07] MEDS ORDERED: BUPRENORPHINE HCL 150 MCG, BUPRENORPHINE HCL 75 MCG BC PRN
[2024-02-07] MEDS: BUPRENORPHINE HCL 150 MCG, BUPRENORPHINE HCL 75 MCG BC SCH (06:43)
[2024-02-07] MEDS: MAGNESIUM HYDROX 2400MG/30ML ORAL SUSPENSION 30 ML CUP PO PRN (09:10)
[2024-02-07] MEDS: RIFAXIMIN 550 MG TABLET PO SCH (21:11)
[2024-02-08] MEDS: BUPRENORPHINE HCL 450 MCG FILM BC SCH (07:02)
[2024-02-09] MEDS: BUPRENORPHINE/NALOXONE 4 MG/1 MG FILM PACKET SL SCH (07:02)
[2024-02-10 07:25] VITALS: BP 115/79; PULSE 76; RESP 18; TEMP 97.3
[2024-02-10] MEDS ORDERED: BUPRENORPHINE/NALOXONE 4 MG/1 MG FILM PACKET SL SCH (22:00)
== END 2024-02-10 12:40 | disposition left against medical advice (07) | DRG 772 ==
LOC: YASAS 15:02 → Y3E 15:04
PROVIDERS: ADMIT Allergy & Immunology; ATTEND Psychiatry & Neurology Pain Medicine
PROC: HZ42ZZZ Group Counseling for Substance Abuse Treatment, Cognitive-Behavioral (ICD-10-PCS; principal; 2024-02-03)
DX: F11.20 Opioid dependence, uncomplicated (principal); F10.20 Alcohol dependence, uncomplicated; F16.20 Hallucinogen dependence, uncomplicated; F12.20 Cannabis dependence, uncomplicated; F17.210 Nicotine dependence, cigarettes, uncomplicated; F19.282 Other psychoactive substance dependence with psychoactive substance-induced sleep disorder; F19.24 Other psychoactive substance dependence with psychoactive substance-induced mood disorder; F31.9 Bipolar disorder, unspecified; F42.4 Excoriation (skin-picking) disorder; E72.20 Disorder of urea cycle metabolism, unspecified; G47.00 Insomnia, unspecified; Z56.0 Unemployment, unspecified; Z59.00 Homelessness unspecified
CPT/HCPCS: 36415; 82140; 82652; 82962; 83735; 85610